=== PATIENT | male | born 1935 | race African-American/Black ===

== ENCOUNTER 2018-05-31 07:50 | Outpatient (CLI) | payer MEDICARE ==
--- NOTE | 2018-05-31 09:01 | CT ---
CT PULMONARY LUNG SCAN: Date: 05/31/18 HISTORY: Z87.891 personal history of tobacco use/nicotine dependence. COMPARISON: None. FINDINGS: Lung Screening Specific (Lung-RADS): Negative. No suspicious pulmonary nodule. Potentially Significant Incidentals (Lung-RADS Category S): Negative. Pulmonary Incidentals: There is scarring and fibrosis in the lung apices. Mild bilateral centrilobul ar emphysema, predominantly involving the lung apices. Other Incidentals: There is mild vascular calcifications of the aorta. No mediastinal adenopathy. Th ere is calcification along the inferior pericardium. There are dense calcifications along the pancreatic duct. Multiple midline sternotomy wires. The thoracic vertebra are normal. No acute displaced rib fracture. Old remote right posterior second rib fracture. IMPRESSION: 1. Lung-RADS Category 1: Negative. Recommendation is a follow-up screening CT of the chest, low dos e, in 12 months. 2. Lung-RADS Category S: Negative. 3. Other incidental findings as above. Evidence of chronic pancreatitis. Mild fibrosis in the lungs. 4. Evidence of possibly an old pericardial hematoma with calcifications along the inferior pericardi um. POS: [facility]
== END 2018-05-31 07:51 | disposition home or self-care (01) ==
LOC: CT 07:50
PROVIDERS: ATTEND Internal Medicine Critical Care Medicine
DX: Z87.891 Personal history of nicotine dependence (principal); K86.1 Other chronic pancreatitis; J84.10 Pulmonary fibrosis, unspecified
CPT/HCPCS: G0297